=== PATIENT | male | born 1980 ===

== ENCOUNTER 2021-02-26 19:59 | Emergency (ER) | payer BC ==
[2021-02-26] MEDS ORDERED: Lidocaine 1% w/Epinephrine 1:100K 20 ML VIAL ONE (20:06)
[2021-02-26] MEDS ORDERED: HYDROcodone/Acetaminophen 5/325 mg Tablet ONE (20:28)
[2021-02-26] MEDS ORDERED: Bacitracin 1 PK ONE (22:57)
== END 2021-02-26 20:39 | disposition home or self-care (01) ==
LOC: BURERS 19:59
DX: L03.112 Cellulitis of left axilla (principal); L02.412 Cutaneous abscess of left axilla; E11.9 Type 2 diabetes mellitus without complications; I10 Essential (primary) hypertension; Z79.84 Long term (current) use of oral hypoglycemic drugs; Z79.899 Other long term (current) drug therapy
CPT/HCPCS: 10060